=== PATIENT | female | born 1975 | race African-American/Black ===

== ENCOUNTER 2016-07-21 12:51 | Emergency (ER) | payer BC ==
[2013-11-22 15:25] VITALS: BP 116/62
[~2016-07-21] VITALS: Ht 170.2 cm; Wt 97.5 kg
[~2016-07-21 12:51] MED LIST: LEVO50TA PO
[2016-07-21] MEDS ORDERED: AMOX1TAB61 PO (13:31)
--- NOTE | 2016-07-21 13:31 | PHYS DOC ---
Past Medical History Past Medical History: Anemia, Hypothyroid, Other Additional Past Medical Histor: heart murmur Past Surgical History: Tonsillectomy, Tubal ligation, Other Additional Past Surgical Histo: bilateral carpal tunnel release, lymphnode removal Alcohol Use: None Drug Use: None Adult General Chief Complaint Chief Complaint: COUGH HPI HPI Patient is a 41 year old female is into the emergency department stating that she's had a cough congestion with a fever up to 103 that started on Wednesday. She states that she has been taken ibuprofen 800 mg although she is out of her prescription dosage. Patient states that she has not taken any other medications as she does not like to take pills. She'll states that she has some chest tightness and discomfort more so when she coughs. She denies a productive cough at this time. Patient does state that she has been taking Mucinex and is taken one dose yesterday as well as some DayQuil. Review of Systems Review of Systems Constitutional: Denies fever or chills [] Eyes: Denies change in visual acuity, redness, or eye pain [] HENT: nasal congestion denies sore throat [] Respiratory: cough denies shortness of breath [] Cardiovascular: No additional information not addressed in HPI [] GI: Denies abdominal pain, nausea, vomiting, bloody stools or diarrhea [] : Denies dysuria or hematuria [] Musculoskeletal: Denies back pain or joint pain [] Integument: Denies rash or skin lesions [] Neurologic: Denies headache, focal weakness or sensory changes [] Endocrine: Denies polyuria or polydipsia [] Allergies Allergies Allergies Coded Allergies Type Severity Reaction Last Updated Verified aspirin Allergy Unknown unknown 11/22/13 Yes Physical Exam Physical Exam Constitutional: Well developed, well nourished, no acute distress, non-toxic appearance. [] HENT: Normocephalic, atraumatic, bilateral external ears normal, oropharynx moist, no oral exudates, nose normal. Bilateral TM normal, throat with redness, no erythema noted, no exudate noted. Patient with frontal and maxillary sinus pressure Eyes: PERRLA, EOMI, conjunctiva normal, no discharge. [] Neck: Normal range of motion, no tenderness, supple, no stridor. [] Cardiovascular:Heart rate regular rhythm, no murmur [] Lungs & Thorax: Bilateral breath sounds clear to auscultation [] Skin: Warm, dry, no erythema, no rash. [] Back: No tenderness Extremities: No tenderness, no cyanosis, no clubbing, ROM intact, no edema. [] Neurologic: Alert and oriented X 3, normal motor function, normal sensory function, no focal deficits noted. [] Psychologic: Affect normal, judgement normal, mood normal. [] Current Patient Data Vital Signs Vital Signs Date Time Temp Pulse Resp B/P (MAP) Pulse Ox O2 Delivery O2 Flow Rate FiO2 07/21/16 13:03 98.4 93 16 131/69 (89) 97 Room Air 98.4 EKG EKG [] Radiology/Procedures Radiology/Procedures [] Course & Med Decision Making Course & Med Decision Making Pertinent Labs and Imaging studies reviewed. (See chart for details) Spoke with patient regards to viruses. Patient feels that this is more than a virus at this time. She'll be provided with Augmentin for sinus infection with recommendations for Sudafed and Mucinex DM [id number]. Also recommended ibuprofen 800 mg every 8 hours for fever chills generalized body aches and discomfort. Recommended plenty of fluids. Signs and symptoms to return to emergency department provided. Patient was also encouraged good handwashing. [] Dragon Disclaimer Dragon Disclaimer This electronic medical record was generated, in whole or in part, using a voice recognition dictation system. Departure Departure Impression: Primary Impression: Sinusitis Disposition: 01 HOME, SELF-CARE Condition: STABLE Referrals: NO PCP (PCP) Patient Instructions: Sinusitis, [id number] Additional Instructions: Activity as tolerated Sudafed as directed by manufacture over the counter Mucinex DM as directed by manufacture over the counter Ibuprofen 800 mg every 8 hours with food, stop taking if you develop upset stomach Drink plenty of fluids Warm moist packs to chest wall will also help with comfort Splint the chest when cough will assist with discomfort Good handwashing helps prevent the spread of viruses Followup with your primary care provider in 7-10 days Return to emergency department as needed for signs and symptoms that become worse. Scripts Amoxicillin/Potassium Clav (AUGMENTIN 875-125 TABLET) 1 Each Tablet 1 TAB PO BID, #20 TAB Prov: LASHONDA CÁRDENAS APRN 07/21/16 LASHONDA CÁRDENAS APRN July 21, 2016 13:31
== END 2016-07-21 13:39 | disposition home or self-care (01) ==
LOC: ER 12:51
DX: J32.9 Chronic sinusitis, unspecified (principal); R07.89 Other chest pain; E03.9 Hypothyroidism, unspecified; Z88.6 Allergy status to analgesic agent
CPT/HCPCS: 99283

== ENCOUNTER 2016-11-08 12:51 | Emergency (ER) | payer BC ==
[~2016-11-08] VITALS: Ht 167.6 cm; Wt 104.3 kg
[~2016-11-08 12:51] MED LIST changes: +AMOX1TAB61 PO
--- NOTE | 2016-11-08 13:27 | PHYS DOC ---
Past Medical History Past Medical History: Anemia, Hypothyroid, Other Additional Past Medical Histor: heart murmur Past Surgical History: Tonsillectomy, Tubal ligation, Other Additional Past Surgical Histo: bilateral carpal tunnel release, lymphnode removal Alcohol Use: Occasionally Drug Use: Marijuana Adult General Chief Complaint Chief Complaint: ABDOMINAL PAIN HPI HPI Patient is a 41 year old female who presents with complaint of lower abdominal pain for the past 2 days. Patient states that she started having symptoms yesterday of lower abdominal pain, loose stools, and vomiting. Patient states she had 3 episodes of vomiting yesterday and several loose stools. Patient states that she has had no vomiting today but has continued to have watery stools. Patient states that she has been having crampy lower abdominal pain that worsens before bowel movements. The patient rates pain currently is 4 out of 10. Patient states that it can increase up to 8 out of 10 before bowel movements. The patient states that she ate pork a couple days ago after not eating pork for several months. She believes that this may have caused her stomach, upset and cause her symptoms. Patient denies any history of significant medical problems. Review of Systems Review of Systems Constitutional: Denies fever or chills [] Eyes: Denies change in visual acuity, redness, or eye pain [] HENT: Denies nasal congestion or sore throat [] Respiratory: Denies cough or shortness of breath [] Cardiovascular: Denies chest pain or edema[] GI: Abdominal pain, nausea, vomiting, diarrhea[] : Denies dysuria or hematuria [] Musculoskeletal: Denies back pain or joint pain [] Integument: Denies rash or skin lesions [] Neurologic: Denies headache, focal weakness or sensory changes [] Current Medications Current Medications Current Medications Medications (Trade) Dose Ordered Sig/Mathew Start Time Stop Time Status Last Admin Dose Admin Sodium Chloride 1,000 ml @ 1,000 mls/hr 1X ONCE 11/08/16 14:30 11/08/16 15:29 11/08/16 14:24 1,000 MLS/HR Allergies Allergies Allergies Coded Allergies Type Severity Reaction Last Updated Verified aspirin Allergy Unknown unknown 11/22/13 Yes Physical Exam Physical Exam Constitutional: Alert, afebrile, appears in no acute distress. [] HENT: Normocephalic, atraumatic, bilateral external ears normal, oropharynx moist, no oral exudates, nose normal. [] Eyes: PERRLA, EOMI, conjunctiva normal, no discharge. [] Neck: Normal range of motion, no tenderness, supple, no stridor. [] Cardiovascular:Heart rate regular rhythm, no murmur [] Lungs & Thorax: Bilateral breath sounds clear to auscultation [] Abdomen: Bowel sounds normal, soft, no tenderness, no masses, no pulsatile masses. [] Skin: Warm, dry, no erythema, no rash. [] Back: No tenderness, no CVA tenderness. [] Extremities: No tenderness, no cyanosis, no clubbing, ROM intact, no edema. [] Neurologic: Alert and oriented X 3, normal motor function, normal sensory function, no focal deficits noted. [] Current Patient Data Vital Signs Vital Signs Date Time Temp Pulse Resp B/P (MAP) Pulse Ox O2 Delivery O2 Flow Rate FiO2 11/08/16 12:55 98.2 71 16 120/65 (83) 95 Room Air 98.2 Lab Values Laboratory Tests Test 11/08/16 12:11 11/08/16 13:01 11/08/16 13:08 POC Urine HCG, Qualitative Hcg negative (Negative) Urine Collection Type Unknown Urine Color Yellow Urine Clarity Clear Urine pH 8.0 Urine Specific [place] 1.025 Urine Protein Negative mg/dL (NEG-TRACE) Urine Glucose (UA) Negative mg/dL (NEG) Urine Ketones (Stick) Negative mg/dL (NEG) Urine Blood Negative (NEG) Urine Nitrite Negative (NEG) Urine Bilirubin Negative (NEG) Urine Urobilinogen Dipstick 0.2 mg/dL (0.2 mg/dL) Urine Leukocyte Esterase Negative (NEG) Urine RBC 0 /HPF (0-2) Urine WBC 0 /HPF (0-4) Urine Squamous Epithelial Cells Few /LPF Urine Bacteria 0 /HPF (0-FEW) White Blood Count 5.2 x10^3/uL (4.0-11.0) Red Blood Count 4.67 x10^6/uL (3.50-5.40) Hemoglobin 12.1 g/dL (12.0-15.5) Hematocrit 37.8 % (36.0-47.0) Mean Corpuscular Volume 81 fL (79-100) Mean Corpuscular Hemoglobin 26 pg (25-35) Mean Corpuscular Hemoglobin Concent 32 g/dL (31-37) Red Cell Distribution Width 14.3 % (11.5-14.5) Platelet Count 279 x10^3/uL (140-400) Neutrophils (%) (Auto) 40 % (31-73) Lymphocytes (%) (Auto) 48 % (24-48) Monocytes (%) (Auto) 9 % (0-9) Eosinophils (%) (Auto) 2 % (0-3) Basophils (%) (Auto) 1 % (0-3) Neutrophils # (Auto) 2.1 x10^3uL (1.8-7.7) Lymphocytes # (Auto) 2.5 x10^3/uL (1.0-4.8) Monocytes # (Auto) 0.5 x10^3/uL (0.0-1.1) Eosinophils # (Auto) 0.1 x10^3/uL (0.0-0.7) Basophils # (Auto) 0.0 x10^3/uL (0.0-0.2) Sodium Level 140 mmol/L (136-145) Potassium Level 3.8 mmol/L (3.5-5.1) Chloride Level 105 mmol/L (98-107) Carbon Dioxide Level 29 mmol/L (21-32) Anion Gap 6 (6-14) Blood Urea Nitrogen 9 mg/dL (7-20) Creatinine 0.8 mg/dL (0.6-1.0) Estimated GFR (Cockcroft-Gault) 96.6 BUN/Creatinine Ratio 11 (6-20) Glucose Level 94 mg/dL (70-99) Calcium Level 9.1 mg/dL (8.5-10.1) Total Bilirubin 0.3 mg/dL (0.2-1.0) Aspartate Amino Transferase (AST) 14 U/L (15-37) L Alanine Aminotransferase (ALT) 18 U/L (14-59) Alkaline Phosphatase 82 U/L (46-116) Total Protein 7.8 g/dL (6.4-8.2) Albumin 3.2 g/dL (3.4-5.0) L Albumin/Globulin Ratio 0.7 (1.0-1.7) L Laboratory Tests 11/08/16 13:08 Laboratory Tests 11/08/16 13:08 EKG EKG Not performed[] Radiology/Procedures Radiology/Procedures Not performed[] Course & Med Decision Making Course & Med Decision Making Pertinent Labs and Imaging studies reviewed. (See chart for details) Patient given IV fluids in the emergency department. Patient's labwork unremarkable. The patient's symptoms are likely due to possible food poisoning. Viral gastroenteritis also remains on the differential though less likely due to absence of fevers. The patient's symptoms do not appear consistent with an acute surgical process. The patient was given prescriptions for Zofran and Bentyl for symptoms. Advised continued oral hydration at home with follow-up in 2 days a primary doctor for reevaluation. Advised return emergency department for any worsening symptoms. Patient voiced understanding and in agreement with treatment plan. Dragon Disclaimer Dragon Disclaimer This electronic medical record was generated, in whole or in part, using a voice recognition dictation system. Departure Departure Impression: Primary Impression: Abdominal pain Additional Impressions: Nausea and vomiting Diarrhea Disposition: HOME, SELF-CARE Condition: IMPROVED Referrals: NO PCP (PCP) Patient Instructions: Abdominal Pain, Diarrhea, Nausea and Vomiting Additional Instructions: Follow-up with the primary doctor in the next 2-3 days for reevaluation. Return to emergency department for any worsening symptoms. Scripts Dicyclomine Hcl (BENTYL) 10 Mg Capsule 1 CAP PO TID, #30 CAP 0 Refills Prov: FORREST HOLLOWAY MD 11/08/16 Ondansetron (ZOFRAN ODT) 4 Mg Tab.rapdis 1 TAB SL Q6HRS Y for NAUSEA/VOMITING, #15 TAB Prov: FORREST HOLLOWAY MD 11/08/16 Problem Qualifiers Primary Impression: Abdominal pain Abdominal location: lower abdomen, unspecified Qualified Codes: R10.30 - Lower abdominal pain, unspecified Additional Impressions: Nausea and vomiting Vomiting type: unspecified Vomiting Intractability: non-intractable Qualified Codes: R11.2 - Nausea with vomiting, unspecified Diarrhea Diarrhea type: unspecified type Qualified Codes: R19.7 - Diarrhea, unspecified FORREST HOLLOWAY MD Nov 08, 2016 13:26
[2016-11-08 13:36] LABS: BILIRUBIN,URINE NEGATIVE (NEG); GLUCOSE,URINE NEGATIVE (NEG); NITRITE,URINE NEGATIVE (NEG); PROTEIN,URINE NEGATIVE (NEG-TRACE); UROBILINOGEN,URINE 0.2 mg/dL (0.2 mg/dL)
[2016-11-08 13:37] LABS: BACTERIA,URINE 0 /HPF (0-FEW); RBC,URINE 0 /HPF (0-2); SQUAMOUS EPITHELIAL CELL,UR FEW /LPF; WBC,URINE 0 /HPF (0-4)
[2016-11-08] MEDS ORDERED: IV NORMAL SALINE 1000ML BAG 1,000 ML IV ONE (14:30)
[2016-11-08 14:33] LABS: BASO % 1 % (0-3); EOS % 2 % (0-3); HEMATOCRIT 37.8 % (36.0-47.0); HEMOGLOBIN 12.1 g/dL (12.0-15.5); LYMPH # 2.5 x10^3/uL (1.0-4.8); LYMPH % 48 % (24-48); MEAN CORPUSCULAR HEMOGLOBIN 26 pg (25-35); MEAN CORPUSCULAR HGB CONC 32 g/dL (31-37); MEAN CORPUSCULAR VOLUME 81 fL (79-100); MONO % 9 % (0-9); NEUT % 40 % (31-73); PLATELET COUNT 279 x10^3/uL (140-400); RED BLOOD COUNT 4.67 x10^6/uL (3.50-5.40); RED CELL DISTRIBUTION WIDTH 14.3 % (11.5-14.5); WHITE BLOOD COUNT 5.2 x10^3/uL (4.0-11.0)
[2016-11-08 14:40] LABS: CALCIUM 9.1 mg/dL (8.5-10.1); CREATININE 0.8 mg/dL (0.6-1.0); GFR 96.6; POTASSIUM 3.8 mmol/L (3.5-5.1)
[2016-11-08 14:45] LABS: ALBUMIN 3.2 g/dL (3.4-5.0); ALBUMIN/GLOBULIN RATIO 0.7 (1.0-1.7); TOTAL BILIRUBIN 0.3 mg/dL (0.2-1.0); TOTAL PROTEIN 7.8 g/dL (6.4-8.2)
[2016-11-08 15:08] VITALS: BP 119/68
[2016-11-08] MEDS ORDERED: ONDA4TAB10 SL (15:09)
[2016-11-08] MEDS ORDERED: DICY10CA53 PO (15:09)
== END 2016-11-08 15:23 | disposition home or self-care (01) ==
LOC: ER 12:51
DX: R10.30 Lower abdominal pain, unspecified (principal); R11.2 Nausea with vomiting, unspecified; R19.7 Diarrhea, unspecified; E03.9 Hypothyroidism, unspecified; Z88.6 Allergy status to analgesic agent
CPT/HCPCS: 36415; 80053; 81001; 81025; 85025; 96360; 99284; J7030